=== PATIENT | female | born 1980 | race Caucasian/White ===

== ENCOUNTER 2024-06-26 20:31 | Emergency (ER) | payer OTHER, SELFPAY ==
[2024-06-26] VITALS (17 sets, daily range): BP systolic 108–150; BP diastolic 83–104; PULSE 79–101; TEMP 36.7; O2SAT 95–100; BMI 24.7
--- NOTE | 2024-06-26 21:21 | ECG_ITS ---
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
--- NOTE | 2024-06-26 21:27 | ED.ALCOHOL1 ---
HPI - Alcohol General Chief Complaint: Alcohol Stated Complaint: DETOX Time Seen by Provider: 06/26/24 20:38 Source: patient Mode of arrival: walk-in Limitations: no limitations History of Present Illness HPI narrative: This 43-year-old female with a history of alcohol dependence was referred to the emergency department from [facility] after she had a blood alcohol greater than 0.2 upon her intake. She admits that she drinks vodka and tequila. She drank right before going into the [facility]. She states she has been through alcohol detox multiple times in the past and has seizures when she is withdrawing. At this time she is awake alert oriented, giving me a reasonable history, mildly intoxicated but otherwise coherent. Related Data Home Medications ?Medication ?Instructions ?Recorded ?Confirmed No Known Home Medications 06/26/24 06/26/24 Allergies Allergy/AdvReac Type Severity Reaction Status Date / Time acetaminophen (From Vicodin) Allergy Severe Anaphylaxis Verified 06/26/24 21:01 aspirin Allergy Severe Anaphylaxis Verified 06/26/24 21:01 hydrocodone (From Vicodin) Allergy Severe Anaphylaxis Verified 06/26/24 21:01 Sulfa (Sulfonamide Allergy Severe hives Verified 06/26/24 21:01 Antibiotics) Review of Systems ROS Status of ROS 10 or more systems reviewed and unremarkable except as noted in history and below PFSH PFSH Social History Little interest or pleasure in doing things: not at all Feeling down, depressed, or hopeless: not at all Exam Narrative Exam Narrative: Vital signs and Nursing Notes reviewed: Patient is afebrile, she is mildly tachycardic with a pulse of 101, she has a normal respiratory rate, blood pressure is elevated at 150/104, she is not hypoxic with pulse ox of 100% on room air General: Awake, alert, oriented, mildly intoxicated but conversant, no respiratory distress, tearful at times HEENT: Normocephalic atraumatic, mucous membranes are moist and pink, eyes are clear, normal conjunctiva, vision is grossly intact, posterior pharynx is normal in appearance. Chest: Lungs are clear to auscultation with good air entry, there is no wheezing rhonchi or rales appreciated no accessory muscle use, patient is speaking in complete sentences-no chest wall tenderness to palpation CVS: Regular rate and rhythm S1-S2, no murmurs rubs or gallops, pulses are brisk and equal bilaterally ABD: Soft, nondistended, nontender, no rebound guarding or rigidity, bowel sounds are normal, no pulsatile masses appreciated Extremities: Moving all extremities, no lower extremity tenderness or swelling noted, negative Homans' sign, pulses are brisk and equal bilaterally Skin: Normal in appearance without rash,pallor, petechiae or purpura Neuro: No focal deficits, intoxicated but cooperative, no active signs of withdrawal Psych: Intoxicated, tearful Constitutional Vital Signs, click to edit/add: Last Vital Signs Temp 98.1 F 06/26/24 20:54 Pulse 101 H 06/26/24 20:54 Resp 20 06/26/24 20:54 BP 150/104 H 06/26/24 20:54 Pulse Ox 100 06/26/24 20:54 O2 Del Method Room Air 06/26/24 20:54 Course Vital Signs Vital signs: Vital Signs Temperature 98.1 F 06/26/24 20:54 Pulse Rate 101 H 06/26/24 20:54 Respiratory Rate 20 06/26/24 20:54 Blood Pressure 150/104 H 06/26/24 20:54 Pulse Oximetry 100 06/26/24 20:54 Oxygen Delivery Method Room Air 06/26/24 20:54 Temperature 98.1 F 06/26/24 20:54 Pulse Rate 101 H 06/26/24 20:54 Respiratory Rate 20 06/26/24 20:54 Blood Pressure 150/104 H 06/26/24 20:54 Pulse Oximetry 100 06/26/24 20:54 Oxygen Delivery Method Room Air 06/26/24 20:54 MDM - Alcohol MDM Narrative Medical decision making narrative: This 43-year-old female with a history of alcohol dependence who was sent to the emergency department from [facility] after she had a breath alcohol greater than 0.2 presents for evaluation of alcohol intoxication. She states that when she starts to detox she has seizures. In emergency department she was alert, nontoxic, mildly intoxicated but conversant and appropriate. EKG is normal sinus rhythm at 90 bpm. Routine labs were ordered. She has a normal white count and hemoglobin. Electrolytes are normal her glucose was mildly low at 65. Her alcohol is elevated at 373. She had not eaten during the day and was given oral fluids and a meal which she tolerated without difficulty. She was given a dose of Ativan and slept for several hours. [facility] called stating that they would take her at their facility while she was still intoxicated and actually preferred at that way. I made her aware of this and she was anxious to be released to the recovery center. She has remained hemodynamically stable in the emergency department without any signs of acute alcohol withdrawal, DTs or seizure activity. Lab Data Labs: Lab Results 06/26/24 06/26/24 Range/Units 21:08 21:15 WBC 7.2 (4.0-11.0) 10^3/uL RBC 5.04 (4.20-5.40) 10^6/uL Hgb 12.5 (12.0-16.0) g/dL Hct 39.4 (36.0-48.0) % MCV 78.2 L (81.0-99.0) fL MCH 24.8 L (26.7-34.0) pg MCHC 31.7 (29.9-35.2) g/dL RDW 14.5 (11.0-15.0) % Plt Count 322 (150-450) 10^3/uL MPV 8.7 L (9.5-13.5) fL Neut % (Auto) 47.5 (43.0-75.0) % Lymph % (Auto) 41.5 (20.5-60.0) % [place] % (Auto) 8.7 (1.7-12.0) % Eos % (Auto) 1.2 (0.9-7.0) % Baso % (Auto) 1.0 (0.2-2.0) % Neut # (Auto) 3.4 (1.4-6.5) 10^3/uL Lymph # (Auto) 3.0 (1.2-3.8) 10^3/uL [place] # (Auto) 0.6 (0.3-0.8) 10^3/uL Eos # (Auto) 0.1 (0.0-0.7) 10^3/uL Baso # (Auto) 0.1 (0.0-0.1) 10^3/uL Abs Immat Gran (auto) 0.01 (0.00-0.03) 10^3/uL Imm/Tot Granulo (auto) 0.1 (0.0-0.5) % Sodium 144 (136-145) mmol/L Potassium 3.5 (3.5-5.1) mmol/L Chloride 105 (98-107) mmol/L Carbon Dioxide 29.2 (21.0-32.0) mmol/L Anion Gap 13.3 BUN 10.0 (7.0-18.0) mg/dL Creatinine 0.90 (0.55-1.02) mg/dL Est GFR ( Amer) >60 (>=60 mL/min/1.73m^2) Est GFR (Non-Af Amer) >60 (>=60 mL/min/1.73m^2) BUN/Creatinine Ratio 11.1 Glucose 65 L (74-106) mg/dL Calcium 8.6 (8.5-10.1) mg/dL Total Bilirubin 0.3 (0.2-1.0) mg/dL AST 29 (15-37) U/L ALT 23 (14-59) U/L Alkaline Phosphatase 106 (46-116) U/L Total Protein 7.8 (6.4-8.2) g/dL Albumin 3.8 (3.4-5.0) g/dL Globulin 4.0 g/dL Albumin/Globulin Ratio 0.9 Urine Color Lt. green (YELLOW) Urine Clarity Clear (CLEAR) Urine pH 6.0 (5.0-9.0) Ur Specific [place] <=1.005 A (1.005-1.025) Urine Protein Negative (NEG/TRACE) mg/dL Urine Glucose (UA) Negative (NEGATIVE) mg/dL Urine Ketones Negative (NEGATIVE) mg/dL Urine Occult Blood Negative (NEGATIVE) Urine Nitrite Negative (NEGATIVE) Urine Bilirubin Negative (NEGATIVE) Urine Urobilinogen 0.2 (0.2-1.0) EU/dL Ur Leukocyte Esterase Moderate A (NEGATIVE) Urine RBC 0-2 (0-2) #/HPF Urine WBC 10-20 A (NONE SEEN) #/HPF Ur Squamous Epith Cells Few A (NONE/RARE) #/LPF Urine Crystals None seen (None Seen) #/HPF Urine Bacteria Moderate A (NONE SEEN) #/HPF Urine Casts None seen (NONE SEEN) #/LPF Urine Mucus None seen (NONE SEEN) Ur Culture Indicated? Yes Urine HCG, Qual Negative (NEGATIVE) Ethanol Quant 373 mg/dL ECG Data Attestation: I personally reviewed and interpreted this ECG as follows: (Sinus rhythm at 90 bpm, normal axis, normal intervals, no acute ST segment elevation or T wave inversion) Discharge Plan Discharge Chief Complaint: Alcohol Clinical Impression: Alcoholic intoxication Patient Disposition: Hospice - Medical Facility Time of Disposition Decision: 23:09 Discharge Location: [facility] Condition: Good Prescriptions / Home Meds: No Action No Known Home Medications Print Language: Moldovan Referrals: Physician,Non-Staff, MD [Primary Care Provider] - 1 week
[2024-06-26 21:50] LABS: Basophils Absolute Auto 0.1 10^3/uL (0.0-0.1); Eosinophils Absolute Auto 0.1 10^3/uL (0.0-0.7); Eosinophils Percent Auto 1.2 % (0.9-7.0); Hematocrit 39.4 % (36.0-48.0); Hemoglobin 12.5 g/dL (12.0-16.0); Immature Granulocytes Abs Auto 0.01 10^3/uL (0.00-0.03); Immature Granulocytes Pct Auto 0.1 % (0.0-0.5); Lymphocytes Percent Auto 41.5 % (20.5-60.0); Mean Corpuscular HGB Conc 31.7 g/dL (29.9-35.2); Mean Corpuscular Hemoglobin 24.8 pg (26.7-34.0); Mean Corpuscular Volume 78.2 fL (81.0-99.0); Mean Platelet Volume 8.7 fL (9.5-13.5); Monocytes Absolute Auto 0.6 10^3/uL (0.3-0.8); Monocytes Percent Auto 8.7 % (1.7-12.0); Neutrophils Absolute Auto 3.4 10^3/uL (1.4-6.5); Neutrophils Percent Auto 47.5 % (43.0-75.0); Platelet Count 322 10^3/uL (150-450); Red Blood Count 5.04 10^6/uL (4.20-5.40); Red Cell Distribution Width 14.5 % (11.0-15.0); White Blood Count 7.2 10^3/uL (4.0-11.0)
[2024-06-26 21:51] LABS: Bilirubin Urine NEGATIVE (NEGATIVE); Blood Urine NEGATIVE (NEGATIVE); Clarity Urine CLEAR (CLEAR); Color Urine LT. GREEN (YELLOW); Glucose Urine UA NEGATIVE (NEGATIVE); Ketones Urine NEGATIVE (NEGATIVE); Leukocyte Esterase Urine MODERATE (NEGATIVE); Nitrite Urine NEGATIVE (NEGATIVE); Protein Urine NEGATIVE (NEG/TRACE); Specific Gravity Urine <=1.005 (1.005-1.025); Urobilinogen Urine 0.2 EU/dL (0.2-1.0)
[2024-06-26 21:52] LABS: HCG Qualitative Urine* NEGATIVE (NEGATIVE); Internal Control Within Normal Limits
[2024-06-26 21:58] LABS: Bacteria Urine MODERATE #/HPF (NONE SEEN); Cast Seen? NONE SEEN #/LPF (NONE SEEN); Crystals Seen? None Seen #/HPF (None Seen); Mucus Urine NONE SEEN (NONE SEEN); RBC Urine 0-2 #/HPF (0-2); Squamous Epithelial Cell Urine FEW #/LPF (NONE/RARE); Urine Culture Indicated YES
[2024-06-26 22:00] LABS: Alanine Aminotransferase 23 U/L (14-59); Albumin Globulin Ratio 0.9; Albumin Level 3.8 g/dL (3.4-5.0); Alkaline Phosphatase 106 U/L (46-116); Anion Gap 13.3; Aspartate Amino Transferase 29 U/L (15-37); BUN Creatinine Ratio 11.1; Bilirubin Total 0.3 mg/dL (0.2-1.0); Calcium 8.6 mg/dL (8.5-10.1); Carbon Dioxide 29.2 mmol/L (21.0-32.0); Chloride 105 mmol/L (98-107); Estimated GFR (African America >60 (>=60 mL/min/1.73m^2); Estimated GFR (Non-African Ame >60 (>=60 mL/min/1.73m^2); Ethanol 373 mg/dL; Glucose 65 mg/dL (74-106); Potassium 3.5 mmol/L (3.5-5.1); Sodium 144 mmol/L (136-145); Total Protein 7.8 g/dL (6.4-8.2)
[2024-06-26] MEDS: LORAZEPAM 1 MG TABLET PO (22:01)
--- NOTE | 2024-06-26 22:08 | PC.NURSE ---
this RN assumes care of pt at this time from Annette GUZMÁN. pt resting on ED cart with no distress noted. food provided to pt per request, denies further needs at this time.
--- NOTE | 2024-06-26 23:05 | PC.NURSE ---
this RN spoke to Danny at this time, pt update given to Danny RN, awaiting call back from Danny for ETA for discharge at this time.
== END 2024-06-27 00:06 | disposition home or self-care (01) ==
PROVIDERS: Emergency Provider Emergency Medicine
DX: F10.120 Alcohol abuse with intoxication, uncomplicated (principal); Y90.8 Blood alcohol level of 240 mg/100 ml or more
CPT/HCPCS: 36415; 80053; 80320; 81001; 84703; 85025; 87086; 93005; 99285